=== PATIENT | male | born 1970 | race Caucasian/White ===

== ENCOUNTER → 2016-06-30 | Outpatient (CLI) | payer OTHER ==
[~2016-06-30] MED LIST: ALBU1AER INH; FLON0.053; GABA600T PO; LISI-360 PO; METF-324 PO; MOBI15TA PO; NAPR500 PO; OXYC10TA8 PO; OXYC20 PO
[2016-06-30 08:19] LABS: AUTOMATED NEUTROPHIL # 2.5 TH/MM3 (1.8-7.7); BASOPHIL % 0.6 % (0.0-2.0); EOSINOPHIL # 0.1 TH/MM3 (0-0.4); EOSINOPHIL % 2.7 % (0.0-4.0); HEMATOCRIT 40.5 % (39.0-51.0); HEMO FLAGS DIFF FINAL; LYMPH % 31.1 % (9.0-44.0); LYMPHOCYTE # 1.4 TH/MM3 (1.0-4.8); MEAN CELL VOLUME 90.9 FL (80.0-100.0); MEAN CORPUSCULAR HEMOGLOBIN 31.3 PG (27.0-34.0); MEAN CORPUSCULAR HGB CONC 34.4 % (32.0-36.0); MONO % 7.3 % (0.0-8.0); NEUT % 58.3 % (16.0-70.0); PLATELET COUNT 198 TH/MM3 (150-450); RED BLOOD COUNT 4.45 MIL/MM3 (4.50-5.90); RED CELL DISTRIBUTION WIDTH 12.8 % (11.6-17.2); WHITE BLOOD COUNT 4.4 TH/MM3 (4.0-11.0)
[2016-06-30 08:33] LABS: BLOOD, URINE NEG (NEG); GLUCOSE,URINE NEG (NEG); KETONE, URINE NEG (NEG); MUCUS URINE FEW /lpf (OCC); NITRITE,URINE NEG (NEG); PH, URINE 5.5 (5.0-8.5); SQUAMOUS EPITHELIAL CELL URINE <1 /hpf (0-5); URINE COLOR YELLOW (YELLW/STRAW)
[2016-06-30 08:51] LABS: MICRO ALBUMIN RANDOM URINE RAW 5.2 MG/L (0.0-30.0)
[2016-06-30 08:54] LABS: ANION GAP 9 MEQ/L (5-15); BICARBONATE 26.3 MEQ/L (21.0-32.0); BLOOD UREA NITROGEN 13 MG/DL (7-18); CHLORIDE 104 MEQ/L (98-107); GLOMERULAR FILTRATION RATE 76 ML/MIN (>89); GLUCOSE,FASTING 176 MG/DL (74-99); POTASSIUM 4.2 MEQ/L (3.5-5.1); SODIUM (NA) 139 MEQ/L (136-145)
[2016-06-30 09:04] LABS: ALKALINE PHOSPHATASE 59 U/L (45-117); ALT (GPT) 51 U/L (12-78); AST (GOT) 21 U/L (15-37); FREE T4 1.04 NG/DL (0.76-1.46); HDL CHOLESTEROL 53.2 MG/DL (40.0-60.0); LDL CHOLESTEROL 122 MG/DL (0-99); TOTAL BILIRUBIN ADULT 0.4 MG/DL (0.2-1.0)
[2016-06-30 16:42] LABS: HEMOGLOBIN A1a 1.2 %; HEMOGLOBIN A1b 2.5 %; HEMOGLOBIN Ao 80.6 %; HEMOGLOBIN LA1C 2.4 %
== END ==
LOC: CLAB 07:44
PROVIDERS: ATTEND Family Medicine
DX: E11.69 Type 2 diabetes mellitus with other specified complication (principal); G90.09 Other idiopathic peripheral autonomic neuropathy; M54.5 Low back pain; Z12.5 Encounter for screening for malignant neoplasm of prostate
CPT/HCPCS: 36415; 80053; 80061; 81001; 82043; 83036; 84153; 84439; 84443; 85025

== ENCOUNTER 2016-09-21 12:52 | Observation (INO) | payer OTHER ==
[~2016-09-21] VITALS: Ht 177.8 cm; Wt 87.0 kg
[2016-09-21 12:54] VITALS: BP 136/90; PULSE 86; RESP 18; TEMP 97.4; O2SAT 96
--- NOTE | 2016-09-21 13:06 | PD ---
Physical Exam Time Seen by Provider: 13:05 Narrative Pt presents to the ED for evaluation of CP with SOB since last night. Denies cardiac hx. Pain aggravated with inspiration. Denies cough or cold symptoms. VSS. Awaiting bed placement. Data Data Last Documented VS Vital Signs Date Time Temp Pulse Resp B/P Pulse Ox O2 Delivery O2 Flow Rate FiO2 09/21/16 12:54 97.4 86 18 136/90 96 Room Air MDM Supervised Visit with KIARA: Helga Aguilar Sep 21, 2016 13:06
[2016-09-21] MEDS ORDERED: SODIUM CHLORIDE 0.9% FLUSH 10 ML FLUSH IVF PRN (15:00)
[2016-09-21] MEDS ORDERED: ASPIRIN 325 MG TAB PO ONE (15:00)
--- NOTE | 2016-09-21 15:03 | PD ---
HPI Chief Complaint: Chest Pain Time Seen by Provider: 14:42 Travel History International Travel<30 days: No Contact w/Intl Traveler<30days: No Traveled to known affect area: No History of Present Illness HPI 46yo M with PMH of DM presents to the ED with c/o chest pain since yesterday. Describes it as burning, left sided, and intermittent for a few hours at a time. Pt also states when he walks, he feels pressure in his chest. Associated with worsening pain with inspiration and some sob. Pt was diaphoretic yesterday. Pt had chest pain evaluation when he was 30yo and had negative stress test. Pt's father had heart attack at 47yo. Denies any fever, cough, n/v, abdominal pain, focal weakness or numbness, GERD, PE, DVT, recent immobilization. Denies any cig or cocaine use. 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 PFSH Past Medical History Cardiovascular Problems: Yes Diabetes: Yes Patient Takes Glucophage: Yes Diminished Hearing: No Musculoskeletal: Yes Tetanus Vaccination: < 5 Years Influenza Vaccination: No Past Surgical History Ear Surgery: Yes Other Surgery: Yes (spinal fusion) Social History Alcohol Use: No Tobacco Use: No Substance Use: No (pt denies) Allergies-Medications (Allergen,Severity, Reaction): Coded Allergies: Penicillin (Verified Allergy, Severe, rash, 09/21/16) Vancomycin (Verified Allergy, Severe, rash, 09/21/16) Seafood (Verified Allergy, Unknown, swelling, 09/21/16) Reported Meds & Prescriptions Reported Meds & Active Scripts Active Reported Proair Hfa 8.5 GM Inh (Albuterol Sulfate) 90 Mcg/Act Aer 2 Puff INH Q4-6H PRN 108 mcg/actuation Slow-Mag (Magnesium Chloride-Calcium Carbonate) 71.5-119 Mg Tab 71.5 Mg PO DAILY Zocor (Simvastatin) 20 Mg Tab 20 Mg PO DAILY Naproxen 500 Mg Tab 500 Mg PO BID Glipizide XL (Glipizide) 5 Mg Louise 5 Mg PO DAILY Take with breakfast or first main meal of the day Metformin (Metformin HCl) 500 Mg Tab 500 Mg PO DAILY With a meal Metformin ER (Metformin HCl) 1,000 Mg Louise 1,000 Mg PO BIDAC With evening meal Oxycodone (Oxycodone HCl) 15 Mg Tab 15 Mg PO Q6H PRN Oxycodone ER (Oxycodone HCl) 20 Mg Tab 20 Mg PO Q12HR Gabapentin 600 Mg Tab 1,200 Mg PO TID Review of Systems Except as stated in HPI: all other systems reviewed are Neg Physical Exam Narrative GENERAL: 46yo M not in distress. SKIN: Focused skin assessment warm/dry. HEAD: Atraumatic. Normocephalic. EYES: Pupils equal and round. No scleral icterus. No injection or drainage. ENT: No nasal bleeding or discharge. Mucous membranes pink and moist. NECK: Trachea midline. No JVD. CARDIOVASCULAR: Regular rate and rhythm. No murmur appreciated. RESPIRATORY: No accessory muscle use. Clear to auscultation. Breath sounds equal bilaterally. CHEST WALL: +TTP midsternum. GASTROINTESTINAL: Abdomen soft, non-tender, nondistended. MUSCULOSKELETAL: No obvious deformities. No clubbing. No cyanosis. No edema. NEUROLOGICAL: Awake and alert. No obvious cranial nerve deficits. Motor grossly within normal limits. Normal speech. PSYCHIATRIC: Appropriate mood and affect; insight and judgment normal. Data Data Last Documented VS Vital Signs Date Time Temp Pulse Resp B/P Pulse Ox O2 Delivery O2 Flow Rate FiO2 09/21/16 15:30 98 Room Air 09/21/16 15:30 76 18 114/66 09/21/16 12:54 97.4 Orders Electrocardiogram (09/21/16 13:13) Basic Metabolic Panel (Bmp) (09/21/16 14:53) Ckmb (Isoenzyme) Profile (09/21/16 14:53) Complete Blood Count With Diff (09/21/16 14:53) D-Dimer (09/21/16 14:53) Magnesium (Mg) (09/21/16 14:53) Prothrombin Time / Inr (Pt) (09/21/16 14:53) Act Partial Throm Time (Ptt) (09/21/16 14:53) Troponin I (09/21/16 14:53) Chest, Single Ap (09/21/16 14:53) Ecg Monitoring (09/21/16 14:53) Bilateral Bp Monitoring (09/21/16 14:53) Iv Access Insert/Monitor (09/21/16 14:53) Oximetry (09/21/16 14:53) Oxygen Administration (09/21/16 14:53) Aspirin (Aspirin) (09/21/16 15:00) Sodium Chloride 0.9% Flush (Ns Flush) (09/21/16 15:00) Pantoprazole (Protonix) (09/21/16 15:15) CKMB (09/21/16 14:50) CKMB% (09/21/16 14:50) Admit Order (Ed Use Only) (09/21/16 16:39) Labs Laboratory Tests Test 09/21/16 14:50 White Blood Count 4.8 TH/MM3 Red Blood Count 4.46 MIL/MM3 Hemoglobin 13.5 GM/DL Hematocrit 41.6 % Mean Corpuscular Volume 93.2 FL Mean Corpuscular Hemoglobin 30.3 PG Mean Corpuscular Hemoglobin 32.5 % Concent Red Cell Distribution Width 12.9 % Platelet Count 198 TH/MM3 Mean Platelet Volume 9.2 FL Neutrophils (%) (Auto) 50.1 % Lymphocytes (%) (Auto) 35.4 % Monocytes (%) (Auto) 9.8 % Eosinophils (%) (Auto) 4.2 % Basophils (%) (Auto) 0.5 % Neutrophils # (Auto) 2.4 TH/MM3 Lymphocytes # (Auto) 1.7 TH/MM3 Monocytes # (Auto) 0.5 TH/MM3 Eosinophils # (Auto) 0.2 TH/MM3 Basophils # (Auto) 0.0 TH/MM3 CBC Comment DIFF FINAL Differential Comment Prothrombin Time 10.7 SEC Prothromb Time International 1.0 RATIO Ratio Activated Partial 25.8 SEC Thromboplast Time D-Dimer Quantitative (PE/DVT) 0.43 MG/L FEU Sodium Level 138 MEQ/L Potassium Level 4.0 MEQ/L Chloride Level 103 MEQ/L Carbon Dioxide Level 29.9 MEQ/L Anion Gap 5 MEQ/L Blood Urea Nitrogen 12 MG/DL Creatinine 1.01 MG/DL Estimat Glomerular Filtration 80 ML/MIN Rate Random Glucose 106 MG/DL Calcium Level 9.3 MG/DL Magnesium Level 1.9 MG/DL Total Creatine Kinase 381 U/L Creatine Kinase MB 2.4 NG/ML Creatine Kinase MB % 0.6 % Troponin I LESS THAN 0.02 NG/ML MDM Medical Decision Making Medical Screen Exam Complete: Yes Emergency Medical Condition: Yes Interpretation(s) EKG: NSR 72bpm. Normal axis. No ST segment elevation or depression. Differential Diagnosis Musculoskeletal pain vs. ACS vs. pericarditis vs. pneumonia vs. PE Narrative Course 46yo M with atypical chest pain. However, he does have risk factor with DM and has not had any cardiac work up recently. Labs reviewed, no leukocytosis. Troponin negative. D-dimer negative. CXR negative. Will admit to chest pain center. Diagnosis Primary Impression: OTHER CHEST PAIN Admitting Information Admitting Physician Requests: Observation Scripts Pantoprazole (Protonix)40 Mg Tab40 Mg PO DAILY #30 TAB Ref 1 Prov:Rachel Christina 09/22/16 Dora Rojas DO Sep 21, 2016 15:03
[2016-09-21] MEDS ORDERED: PANTOPRAZOLE SOD 40 MG DELAYED RELEASE TAB PO ONE (15:15)
[2016-09-21 15:30] VITALS: BP 114/66; PULSE 76; RESP 18; O2SAT 98
--- NOTE | 2016-09-21 15:39 | RADRPT ---
EXAM DATE/TIME: 09/21/2016 15:11 [facility] COMPARISON: No previous studies available for comparison. INDICATIONS : Chest pain since yesterday. MEDICAL HISTORY : None. SURGICAL HISTORY : None. ENCOUNTER: Initial ACUITY: 2 days PAIN SCORE: 4/10 LOCATION: Bilateral chest FINDINGS: A single view of the chest demonstrates the lungs to be symmetrically aerated without evidence of mas s, infiltrate or effusion. The cardiomediastinal contours are unremarkable. Osseous structures are intact. CONCLUSION: 1. No acute cardiomegaly disease. Dima Pisano MD on September 21, 2016 at 15:36 Board Certified Radiologist. This report was verified electronically.
[2016-09-21 15:44] LABS: AUTOMATED NEUTROPHIL # 2.4 TH/MM3 (1.8-7.7); BASOPHIL % 0.5 % (0.0-2.0); EOSINOPHIL # 0.2 TH/MM3 (0-0.4); EOSINOPHIL % 4.2 % (0.0-4.0); HEMATOCRIT 41.6 % (39.0-51.0); HEMO FLAGS DIFF FINAL; LYMPH % 35.4 % (9.0-44.0); LYMPHOCYTE # 1.7 TH/MM3 (1.0-4.8); MEAN CELL VOLUME 93.2 FL (80.0-100.0); MEAN CORPUSCULAR HEMOGLOBIN 30.3 PG (27.0-34.0); MEAN CORPUSCULAR HGB CONC 32.5 % (32.0-36.0); MONO % 9.8 % (0.0-8.0); NEUT % 50.1 % (16.0-70.0); PLATELET COUNT 198 TH/MM3 (150-450); RED BLOOD COUNT 4.46 MIL/MM3 (4.50-5.90); RED CELL DISTRIBUTION WIDTH 12.9 % (11.6-17.2); WHITE BLOOD COUNT 4.8 TH/MM3 (4.0-11.0)
[2016-09-21 15:51] LABS: APTT (PATIENT) 25.8 SEC (24.3-30.1); PROTHROMBIN TIME - PATIENT 10.7 SEC (9.8-11.6)
[2016-09-21 16:03] LABS: ANION GAP 5 MEQ/L (5-15); BICARBONATE 29.9 MEQ/L (21.0-32.0); BLOOD UREA NITROGEN 12 MG/DL (7-18); CHLORIDE 103 MEQ/L (98-107); GLOMERULAR FILTRATION RATE 80 ML/MIN (>89); MAGNESIUM 1.9 MG/DL (1.5-2.5); SODIUM (NA) 138 MEQ/L (136-145)
[2016-09-21 16:18] LABS: CREATINE KINASE 381 U/L (39-308)
[2016-09-21 16:31] LABS: CKMB 2.4 NG/ML (0.5-3.6)
[2016-09-21] MEDS ORDERED: NAPR500T PO (18:30)
[2016-09-21] MEDS ORDERED: GLIP-157 PO (18:30)
[2016-09-21] MEDS ORDERED: ZOCO20TA PO (18:30)
[2016-09-21] MEDS ORDERED: SLOWTAB PO (18:30)
[2016-09-21] MEDS ORDERED: GABA600T PO (18:30)
[2016-09-21] MEDS ORDERED: ALBUAER3 INH (18:30)
[2016-09-21] MEDS ORDERED: METF-382 PO (18:30)
[2016-09-21] MEDS ORDERED: OXYC15TA PO (18:30)
[2016-09-21] MEDS ORDERED: METF500T PO (18:30)
[2016-09-21] MEDS ORDERED: OXYC-405 PO (18:30)
[2016-09-21 19:35] LABS: CREATINE KINASE 329 U/L (39-308)
[2016-09-21 19:48] LABS: CKMB 2.3 NG/ML (0.5-3.6)
[2016-09-21 19:53] VITALS: BP 116/73; PULSE 82; RESP 20; TEMP 98.1; O2SAT 94
[2016-09-21] MEDS: SODIUM CHLORIDE 0.9% FLUSH 10 ML FLUSH IV FLUSH SCH (21:20)
[2016-09-21 22:19] LABS: CREATINE KINASE 289 U/L (39-308)
[2016-09-21 22:32] LABS: CKMB 1.6 NG/ML (0.5-3.6)
[2016-09-21 23:51] VITALS: PULSE 75
[2016-09-22 00:03] VITALS: BP 112/72; PULSE 72; RESP 20; TEMP 98.4; O2SAT 96
[2016-09-22 04:13] VITALS: BP 100/59; PULSE 68; RESP 18; TEMP 97.8; O2SAT 96
[2016-09-22] MEDS ORDERED: NAPROXEN 500 MG TAB PO SCH (06:00)
[2016-09-22] MEDS: GABAPENTIN 300 MG CAP PO SCH ×2 (06:08→13:02)
[2016-09-22 06:41] VITALS: O2SAT 96
[2016-09-22 07:11] VITALS: BP 112/75; PULSE 79; RESP 14; TEMP 97.5; O2SAT 95
[2016-09-22 07:15] VITALS: PULSE 77
[2016-09-22] MEDS ORDERED: ONDANSETRON HCL 4 MG/2 ML VIAL IV PRN (08:00)
[2016-09-22] MEDS ORDERED: ACETAMINOPHEN 500 MG CPLT PO PRN (08:00)
[2016-09-22] MEDS ORDERED: NITROGLYCERIN 0.4 MG SL 25 TABS/BTL SL PRN (08:00)
[2016-09-22] MEDS ORDERED: ASPIRIN 325 MG TAB PO SCH (09:00)
[2016-09-22] MEDS: SODIUM CHLORIDE 0.9% FLUSH 10 ML FLUSH IV FLUSH SCH (09:19)
--- NOTE | 2016-09-22 11:18 | HHI.HP ---
HPI Primary Care Physician Jonny Wagner MD Chief Complaint Chest pain History of Present Illness 46-year-old patient with history of diabetes and chronic back pain presents to emergency room for further evaluation of chest pain. Onset Monday for p.m. Location substernal. Characterized as indigestion and burning. Associated symptoms included shortness of breath, diaphoresis, and belching. Denied a nausea or vomiting. Deep breathing initially make pain worse therefore states he was breathing shallow. No radiation of pain. Duration has been constant waxing and waning in intensity since Monday afternoon. No particular movement or position make pain better or worse. Works as a traveling salesman. Yesterday while driving to [place] he continued to have discomfort therefore decided to come to the ER for further evaluation. No known precipitating factors. He tried many antacids without relief. GI cocktail provided emergency room provided slight relief. Endorses he is active and likely job and does not develop any chest discomfort during activity. Review of Systems General: No fatigue,weakness, fever, chills, recent illness, or change in appetite. Has been in his general state of health. Endorses chronic back pain. HEENT: No TERRY, no vision changes, no nasal congestion or drainage, no dysphasia CV: As stated above. Continues to have mild substernal chest burning. No intermittent leg pain with ambulation. RESP: No SOB, cough, wheeze, or recent URI. History of allergy-induced asthma GI: No nausea, vomiting, bowel changes, diarrhea, constipation, pain, distention , melena, or blood in the stool. No unintentional weight gain or weight loss : No dysuria, urgency, frequency,or history of kidney stones EXT: No lower leg edema. History of neuropathy right knee to foot with occasional left leg neuropathy. Tender back of right thigh with palpation. MS: Chronic back pain, endorses multiple back surgeries and injuries. NEURO: No difficulty with balance, LOC, motor/sensory deficits PSYCH: No anxiety, depression, or situational stress SKIN: No rashes, no concerning lesions Past Family Social History Allergies: Coded Allergies: Penicillin (Verified Allergy, Severe, rash, 09/21/16) Vancomycin (Verified Allergy, Severe, rash, 09/21/16) Seafood (Verified Allergy, Unknown, swelling, 09/21/16) Past Medical History Diabetes type 2, chronic back pain, asthma allergy induced Past Surgical History Laminectomy, spinal fusion Reported Medications Active Reported Proair Hfa 8.5 GM Inh (Albuterol Sulfate) 90 Mcg/Act Aer 2 Puff INH Q4-6H PRN 108 mcg/actuation Slow-Mag (Magnesium Chloride-Calcium Carbonate) 71.5-119 Mg Tab 71.5 Mg PO DAILY Zocor (Simvastatin) 20 Mg Tab 20 Mg PO DAILY Naproxen 500 Mg Tab 500 Mg PO BID Glipizide XL (Glipizide) 5 Mg Louise 5 Mg PO DAILY Take with breakfast or first main meal of the day Metformin (Metformin HCl) 500 Mg Tab 500 Mg PO DAILY With a meal Metformin ER (Metformin HCl) 1,000 Mg Louise 1,000 Mg PO BIDAC With evening meal Oxycodone (Oxycodone HCl) 15 Mg Tab 15 Mg PO Q6H PRN Oxycodone ER (Oxycodone HCl) 20 Mg Tab 20 Mg PO Q12HR Gabapentin 600 Mg Tab 1,200 Mg PO TID Active Ordered Medications Current Medications Medications (Trade) Dose Ordered Sig/Olga Route Start Time Stop Time Status Last Admin (NS Flush) 2 ml UNSCH PRN IVF 09/21/16 15:00 (NS Flush) 2 ml BID IV FLUSH 09/21/16 21:00 09/22/16 09:19 (Roxicodone) 15 mg Q6H PRN PO 09/22/16 04:45 09/22/16 06:07 (Neurontin) 600 mg DAILY@09,14,21 PO 09/22/16 09:00 09/22/16 06:08 (Tylenol) 500 mg Q4H PRN PO 09/22/16 08:00 (Zofran Inj) 4 mg Q6H PRN IV 09/22/16 08:00 (Nitrostat Sl) 0.4 mg Q5M PRN SL 09/22/16 08:00 (Aspirin) 325 mg DAILY PO 09/22/16 09:00 09/22/16 09:19 Family History Father had heart attack at age 47. Social History Known diabetes. No known hypertension or hyperlipidemia. States primary doctor has given him preventative medication. Lifelong nonsmoker. Denies any alcohol or illegal drug use. Endorses an active lifestyle with daily activity including jogging most days. Past cardiac testing Exercise stress test in his late 20s unremarkable. Test was completed after father's heart attack. Physical Exam Vital Signs Vital Signs Date Time Temp Pulse Resp B/P Pulse Ox O2 Delivery O2 Flow Rate FiO2 09/22/16 07:11 97.5 79 14 112/75 95 09/22/16 06:41 96 21 09/22/16 04:13 97.8 68 18 100/59 96 09/22/16 00:03 98.4 72 20 112/72 96 09/21/16 23:51 75 09/21/16 19:53 98.1 82 20 116/73 94 09/21/16 15:30 98 Room Air 09/21/16 15:30 76 18 114/66 98 Room Air 09/21/16 15:30 76 18 114/66 98 Room Air 09/21/16 15:15 89 20 98 Room Air 09/21/16 12:54 97.4 86 18 136/90 96 Room Air Physical Exam GENERAL: Alert WN, WD, NAD, mildly anxious, male HEAD: NC, AT EYES: Sclera clear, conjunctiva without injection, pupils equal and round ENT: Mucous membranes pink and moist, no nasal discharge or bleeding NECK: Supple, no masses, trachea midline CV: RRR, without murmur, rub, gallop, no JVD, S1-S2 no S3-S4. No carotid or femoral bruits RESP: Clear lungs throughout bilateral, no crackles, wheeze, rhonchi, symmetrical chest rise, nonlabored, able to speak in full sentences ABD: Soft, NT, ND, no masses, positive bowel tones BACK: No CVAT, no scoliosis EXT: Pulses +24, no dependent edema MS: Normal tone 4 extremities, nontender, no obvious deformities, full range of motion NEURO: CN II through CN XII grossly intact, motor strength 5/5, gait WNL PSYCH: A+O 3, pleasant affect, appropriate speech, appropriate mood and affect , insight and judgment SKIN: Normal turgor, normal texture, no lesions, no rashes, brisk cap refill, even hair distribution Laboratory Laboratory Tests Test 09/21/16 09/21/16 09/21/16 14:50 17:50 21:27 White Blood Count 4.8 Red Blood Count 4.46 Hemoglobin 13.5 Hematocrit 41.6 Mean Corpuscular Volume 93.2 Mean Corpuscular Hemoglobin 30.3 Mean Corpuscular Hemoglobin 32.5 Concent Red Cell Distribution Width 12.9 Platelet Count 198 Mean Platelet Volume 9.2 Neutrophils (%) (Auto) 50.1 Lymphocytes (%) (Auto) 35.4 Monocytes (%) (Auto) 9.8 Eosinophils (%) (Auto) 4.2 Basophils (%) (Auto) 0.5 Neutrophils # (Auto) 2.4 Lymphocytes # (Auto) 1.7 Monocytes # (Auto) 0.5 Eosinophils # (Auto) 0.2 Basophils # (Auto) 0.0 CBC Comment DIFF FINAL Differential Comment Prothrombin Time 10.7 Prothromb Time International 1.0 Ratio Activated Partial 25.8 Thromboplast Time D-Dimer Quantitative (PE/DVT) 0.43 Sodium Level 138 Potassium Level 4.0 Chloride Level 103 Carbon Dioxide Level 29.9 Anion Gap 5 Blood Urea Nitrogen 12 Creatinine 1.01 Estimat Glomerular Filtration 80 Rate Random Glucose 106 Calcium Level 9.3 Magnesium Level 1.9 Total Creatine Kinase 381 329 289 Creatine Kinase MB 2.4 2.3 1.6 Creatine Kinase MB % 0.6 0.7 Troponin I LESS THAN 0.02 LESS THAN 0.02 LESS THAN 0.02 Result Diagram: 09/21/16 1450 09/21/16 1450 Imaging Last Impressions Chest X-Ray 09/21/16 1453 Signed Impressions: Service Date/Time: Wednesday, September 21, 2016 15:11 - CONCLUSION: 1. No acute cardiomegaly disease. Dima Pisano MD Course EKGs Normal sinus rhythm, normal axis no ST or T-segment changes Assessment and Plan Assessment and Plan Chest painadmitted to chest pain center. Ruled out with 3 sets of EKGs, cardiac enzymes, and monitor overnight. Will be seen and evaluated by Dr. Brenna Preston. Plan to complete exercise stress test this a.m. Patient agreeable to plan a care. DiabetesSSI low-dose scale, discussed in length importance of taking preventative medication with history of diabetes. Chronic back paincontinue oxycodone GERDProtonix 40 daily, prescription will be provided at discharge. Rachel Christina Sep 22, 2016 11:18
[2016-09-22] MEDS ORDERED: PANTOPRAZOLE SOD 40 MG DELAYED RELEASE TAB PO SCH (11:30)
--- NOTE | 2016-09-22 11:53 | HHI.HP ---
HPI Primary Care Physician Jonny Wagner MD Past Family Social History Allergies: Coded Allergies: Penicillin (Verified Allergy, Severe, rash, 09/21/16) Vancomycin (Verified Allergy, Severe, rash, 09/21/16) Seafood (Verified Allergy, Unknown, swelling, 09/21/16) Reported Medications Reported Meds & Active Scripts Active Reported Proair Hfa 8.5 GM Inh (Albuterol Sulfate) 90 Mcg/Act Aer 2 Puff INH Q4-6H PRN 108 mcg/actuation Slow-Mag (Magnesium Chloride-Calcium Carbonate) 71.5-119 Mg Tab 71.5 Mg PO DAILY Zocor (Simvastatin) 20 Mg Tab 20 Mg PO DAILY Naproxen 500 Mg Tab 500 Mg PO BID Glipizide XL (Glipizide) 5 Mg Louise 5 Mg PO DAILY Take with breakfast or first main meal of the day Metformin (Metformin HCl) 500 Mg Tab 500 Mg PO DAILY With a meal Metformin ER (Metformin HCl) 1,000 Mg Louise 1,000 Mg PO BIDAC With evening meal Oxycodone (Oxycodone HCl) 15 Mg Tab 15 Mg PO Q6H PRN Oxycodone ER (Oxycodone HCl) 20 Mg Tab 20 Mg PO Q12HR Gabapentin 600 Mg Tab 1,200 Mg PO TID Active Ordered Medications Current Medications Medications (Trade) Dose Ordered Sig/Olga Route Start Time Stop Time Status Last Admin (NS Flush) 2 ml UNSCH PRN IVF 09/21/16 15:00 (NS Flush) 2 ml BID IV FLUSH 09/21/16 21:00 09/22/16 09:19 (Roxicodone) 15 mg Q6H PRN PO 09/22/16 04:45 09/22/16 06:07 (Neurontin) 600 mg DAILY@09,14,21 PO 09/22/16 09:00 09/22/16 06:08 (Tylenol) 500 mg Q4H PRN PO 09/22/16 08:00 (Zofran Inj) 4 mg Q6H PRN IV 09/22/16 08:00 (Nitrostat Sl) 0.4 mg Q5M PRN SL 09/22/16 08:00 (Aspirin) 325 mg DAILY PO 09/22/16 09:00 09/22/16 09:19 (Protonix) 40 mg DAILY PO 09/22/16 11:30 Physical Exam Vital Signs Vital Signs Date Time Temp Pulse Resp B/P Pulse Ox O2 Delivery O2 Flow Rate FiO2 09/22/16 07:11 97.5 79 14 112/75 95 09/22/16 06:41 96 21 09/22/16 04:13 97.8 68 18 100/59 96 09/22/16 00:03 98.4 72 20 112/72 96 09/21/16 23:51 75 09/21/16 19:53 98.1 82 20 116/73 94 09/21/16 15:30 98 Room Air 09/21/16 15:30 76 18 114/66 98 Room Air 09/21/16 15:30 76 18 114/66 98 Room Air 09/21/16 15:15 89 20 98 Room Air 09/21/16 12:54 97.4 86 18 136/90 96 Room Air Laboratory Laboratory Tests Test 09/21/16 09/21/16 09/21/16 14:50 17:50 21:27 White Blood Count 4.8 Red Blood Count 4.46 Hemoglobin 13.5 Hematocrit 41.6 Mean Corpuscular Volume 93.2 Mean Corpuscular Hemoglobin 30.3 Mean Corpuscular Hemoglobin 32.5 Concent Red Cell Distribution Width 12.9 Platelet Count 198 Mean Platelet Volume 9.2 Neutrophils (%) (Auto) 50.1 Lymphocytes (%) (Auto) 35.4 Monocytes (%) (Auto) 9.8 Eosinophils (%) (Auto) 4.2 Basophils (%) (Auto) 0.5 Neutrophils # (Auto) 2.4 Lymphocytes # (Auto) 1.7 Monocytes # (Auto) 0.5 Eosinophils # (Auto) 0.2 Basophils # (Auto) 0.0 CBC Comment DIFF FINAL Differential Comment Prothrombin Time 10.7 Prothromb Time International 1.0 Ratio Activated Partial 25.8 Thromboplast Time D-Dimer Quantitative (PE/DVT) 0.43 Sodium Level 138 Potassium Level 4.0 Chloride Level 103 Carbon Dioxide Level 29.9 Anion Gap 5 Blood Urea Nitrogen 12 Creatinine 1.01 Estimat Glomerular Filtration 80 Rate Random Glucose 106 Calcium Level 9.3 Magnesium Level 1.9 Total Creatine Kinase 381 329 289 Creatine Kinase MB 2.4 2.3 1.6 Creatine Kinase MB % 0.6 0.7 Troponin I LESS THAN 0.02 LESS THAN 0.02 LESS THAN 0.02 Result Diagram: 09/21/16 1450 09/21/16 1450 Assessment and Plan Assessment and Plan Patient seen history obtained and examined. Reviewed with CONTRACTS ADVISOR Pert history includes 2 days atypical burning pain from base of throat to zyphoid. This began suddenly while eating and was associated with mild SOB diaphoresis and a slight cough with pleuritic component. This pain was 4/10 and continues to present. The SOB is accentuated with activity. Preceding this event he experienced a severe cramp in his right thigh with some tenderness persisting to present. PE: Only pert well heeled back scar (stimulator) tender along entire back of thigh on right neg Homans A: Atypical CP RO ACS RO PE possible GI P: Per protocol with ETT if neg Check D dimer Jose A Preston MD Sep 22, 2016 11:53
[2016-09-22 12:00] VITALS: PULSE 75
[2016-09-22] MEDS ORDERED: GABAPENTIN 400 MG CAP PO SCH (13:00)
--- NOTE | 2016-09-22 14:16 | HHI.DCPOC ---
Discharge Care Plan Diagnosis: (1) Atypical chest pain (2) Type 2 diabetes mellitus (3) GERD (gastroesophageal reflux disease) Goals to Promote Your Health * To prevent worsening of your condition and complications * To maintain your health at the optimal level Directions to Meet Your Goals Take your medications as prescribed Follow your dietary instruction Follow activity as directed Keep your appointments as scheduled Take your immunizations and boosters as scheduled If your symptoms worsen call your PCP, if no PCP go to Urgent Care Center or Emergency Room Smoking is Dangerous to Your Health. Avoid second hand smoke Call the 24-hour hour crisis hotline for domestic abuse at Rachel Christina [facility] Sep 22, 2016 14:16
[2016-09-22] MEDS ORDERED: PROT40TA PO (14:22)
[2016-09-22] MEDS ORDERED: PRAVASTATIN SOD 40 MG TAB PO SCH (21:00)
--- NOTE | 2016-09-23 13:11 | EKG ---
Date Performed: 09/21/2016 Time Performed: 20:49:48 PTAGE: 46 years EKG: Sinus rhythm NORMAL ECG PREVIOUS TRACING : 09/21/2016 18.06 Since previous tracing, no significant change noted DOCTOR: Arturo Mcdonald Interpretating Date/Time 09/23/2016 13:10:09
--- NOTE | 2016-09-23 13:12 | EKG ---
Date Performed: 09/21/2016 Time Performed: 18:06:27 PTAGE: 46 years EKG: Sinus rhythm NORMAL ECG PREVIOUS TRACING : 09/21/2016 13.13 Since previous tracing, no significant change noted DOCTOR: Arturo Mcdonald Interpretating Date/Time 09/23/2016 13:10:40
--- NOTE | 2016-09-23 13:13 | EKG ---
Date Performed: 09/21/2016 Time Performed: 13:13:33 PTAGE: 46 years EKG: normal Sinus rhythm POSSIBLE RIGHT VENTRICULAR CONDUCTION DELAY ABNORMAL RHYTHM ECG NO PREVIOUS TRACING DOCTOR: Arturo Mcdonald Interpretating Date/Time 09/23/2016 13:11:48
--- NOTE | 2016-09-23 13:20 | TR ---
Date Performed: 09/22/2016 Time Performed: 11:56:29 DOCTOR: Arturo Mcdonald DRUG LIST: CLINICAL HISTORY: REASON FOR TEST: REASON FOR ENDING: OBSERVATION: CONCLUSION: Bj protocol completed. Stopped sec to exceeding target heart rate and leg fatigue . Maximum LE=335 Target HR Achieved=88.0% Maximum JG=328/72 Total Exercise Time=8:02. No reprod chest discomfort. Rare PVC. No st t segment changes to sugg ischemia. Electrical alternans noted. Good exe rcise tolerance. Normal bp response. Recovery quick and unremarkable. COMMENTS: Patient exercised using the Bj protocol. No electrocardiographic changes were seen to suggest ischemia. Hemodynamic response to exercise was normal. No significant arrhythmia was prese nt.
== END 2016-09-22 15:02 | disposition home or self-care (01) ==
LOC: NEPC 12:52 → NEDA 16:41 → NEPGCP 18:42
PROVIDERS: ADMIT Internal Medicine Cardiovascular Disease; ATTEND Internal Medicine Cardiovascular Disease
DX: R07.89 Other chest pain (principal); K21.9 Gastro-esophageal reflux disease without esophagitis; R06.02 Shortness of breath; M54.9 Dorsalgia, unspecified; R61 Generalized hyperhidrosis; J45.909 Unspecified asthma, uncomplicated; Z79.899 Other long term (current) drug therapy; Z79.84 Long term (current) use of oral hypoglycemic drugs; Z82.49 Family history of ischemic heart disease and other diseases of the circulatory system
CPT/HCPCS: 71010; 80048; 82550; 82552; 83735; 84484; 85025; 85379; 85610; 85730; 93005; 93017; 99285; G0378

== ENCOUNTER 2016-11-25 16:17 | Emergency (ER) | payer OTHER ==
[~2016-11-25] VITALS: Ht 175.3 cm; Wt 89.0 kg
[~2016-11-25 16:17] MED LIST changes: -ALBU1AER INH; +ALBUAER3 INH; -FLON0.053; +GLIP-157 PO; -LISI-360 PO; -METF-324 PO; +METF-382 PO; +METF500T PO; -MOBI15TA PO; -NAPR500 PO; +NAPR500T PO; +OXYC-405 PO; -OXYC10TA8 PO; +OXYC15TA PO; -OXYC20 PO; +PROT40TA PO; +SLOWTAB PO; +ZOCO20TA PO
[2016-11-25 16:19] VITALS: BP 137/69; PULSE 90; RESP 15; TEMP 98.5; O2SAT 94
[2016-11-25] MEDS ORDERED: OXYC30TA62 PO (16:42)
[2016-11-25] MEDS ORDERED: LIDOCAINE HCL 1% 50 ML VIAL INFIL ONE (16:45)
[2016-11-25] MEDS ORDERED: TETANUS/DIPHTHERIA TOXOID ADULT 0.5 ML VIAL IM ONE (16:45)
--- NOTE | 2016-11-25 16:50 | PD ---
HPI Chief Complaint: Laceration/Skin Injury Time Seen by Provider: 16:26 Travel History International Travel<30 days: No Contact w/Intl Traveler<30days: No Traveled to known affect area: No History of Present Illness HPI 46-year-old male that presents to the ED for evaluation of laceration to the left great toe. Per patient this happened today. Per patient he was moving some metal shutters went on and cut him on the toe. He states that he had a lot of bleeding which is what made him come. His significant other apply Steri- Strips to the area. He denies any other medical issues. No chest pain or shortness of breath. Able to move the toe fully. Pain is minimal. No allergies to medication. No other medical issues. 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) Cardiac Catheterization: No Cardiovascular Problems: No High Cholesterol: Yes Congestive Heart Failure: No Diabetes: Yes Patient Takes Glucophage: No Diminished Hearing: No Musculoskeletal: Yes Tetanus Vaccination: > 5 Years Influenza Vaccination: No ?: Not Past Surgical History Coronary Artery Bypass Graft: No Ear Surgery: Yes Other Surgery: Yes (spinal fusion, SPINAL [employer]ULATOR , FOUR BACK SURGERIES) Family History Family Myocardial Infarction: Yes (FATHER) Social History Alcohol Use: No Tobacco Use: No Substance Use: No (pt denies) Allergies-Medications (Allergen,Severity, Reaction): Coded Allergies: penicillin G (Unverified Allergy, Severe, rash, 11/25/16) vancomycin (Unverified Allergy, Severe, rash, 11/25/16) Fish Containing Products (Unverified Allergy, Unknown, swelling, 11/25/16) Reported Meds & Prescriptions Reported Meds & Active Scripts Active Reported Oxycontin (Oxycodone HCl) 30 Mg Tab 15 Mg PO QID Proair Hfa 8.5 GM Inh (Albuterol Sulfate) 90 Mcg/Act Aer 2 Puff INH Q4-6H PRN 108 mcg/actuation Zocor (Simvastatin) 20 Mg Tab 20 Mg PO DAILY Glipizide XL (Glipizide) 5 Mg Louise 5 Mg PO DAILY Take with breakfast or first main meal of the day Metformin (Metformin HCl) 500 Mg Tab 500 Mg PO DAILY With a meal Metformin ER (Metformin HCl) 1,000 Mg Louise 1,000 Mg PO BIDAC With evening meal Oxycodone ER (Oxycodone HCl) 20 Mg Tab 20 Mg PO Q12HR Gabapentin 600 Mg Tab 1,200 Mg PO TID Review of Systems Except as stated in HPI: all other systems reviewed are Neg Physical Exam Narrative GENERAL: SKIN: Warm and dry. HEAD: Atraumatic. Normocephalic. EYES: Pupils equal and round. No scleral icterus. No injection or drainage. ENT: No nasal bleeding or discharge. Mucous membranes pink and moist. Tongue is midline. No uvula deviation. NECK: Trachea midline. No JVD. CARDIOVASCULAR: Regular rate and rhythm. No murmurs, S3, S4. RESPIRATORY: No accessory muscle use. Clear to auscultation. Breath sounds equal bilaterally. GASTROINTESTINAL: Abdomen soft, non-tender, nondistended. Hepatic and splenic margins not palpable. MUSCULOSKELETAL: Extremities without clubbing, cyanosis, or edema. No obvious deformities. Full range of motion of all extremities. Patient has a very superficial and very well approximated less than 1 cm laceration to the dorsal aspect of the left great toe on the PIP area. Minimal bleeding noted. Good capillary refill. Full range of motion of the toe. NEUROLOGICAL: Awake and alert. No obvious cranial nerve deficits. Motor grossly within normal limits. Five out of 5 muscle strength in the arms and legs. Normal speech. PSYCHIATRIC: Appropriate mood and affect; insight and judgment normal. Data Data Last Documented VS Vital Signs Date Time Temp Pulse Resp B/P (MAP) Pulse Ox O2 Delivery O2 Flow Rate FiO2 11/25/16 16:19 98.5 90 15 137/69 (91) 94 Orders Orders Wound Care (11/25/16 16:31) Lidocaine 1% Inj (50 Ml) (Xylocaine 1% I (11/25/16 16:45) Tetanus/Diphtheria Tox Adult (Tetanus/Di (11/25/16 16:45) MDM Medical Decision Making Medical Screen Exam Complete: Yes Emergency Medical Condition: Yes Medical Record Reviewed: Yes Differential Diagnosis Laceration versus abrasion versus skin tear Narrative Course 46-year-old male that presents to the ED for evaluation of laceration to the left great toe. Patient was properly examined and was found to have signs and symptoms consistent laceration. After explained procedure to the patient and she agreed to it laceration was repaired see procedure note. Told to get sutures removed in 14 days. Wound care was endorsed. Follow up with PCP. See ED for worsening symptoms. Patient was given tetanus booster here. Procedures Procedure Narrative LACERATION LOCATION: left great toe LENGTH: 1 cm NUMBER OF STITCHES/SUYAPA: 2 sutures REPAIR: The area of the laceration was prepped with Betadine and sterilely draped. The laceration was infiltrated with 1% Xylocaine. The wound was copiously irrigated and explored without evidence of foreign body, tendon injury or neurovascular injury. The wound was closed using 4-0 Prolene. This was a 1 layer repair. A sterile dressing was applied. The patient was advised to keep the dressing clean and dry. Patient tolerated the procedure well. Diagnosis Primary Impression: Toe laceration Qualified Codes: S91.112A - Laceration without foreign body of left great toe without damage to nail, initial encounter Patient Instructions: General Instructions Additional Instructions: Wound care daily with soap and water. You can apply bandaid if needed. Neosporyn or OTC antibiotic ointment to area as needed twice a day for at least 2 weeks to help with scarring and prevent infection. Meoderma OTC for scarring if needed. Avoid sun exposure for 2 months as the sun could make scar darker and more noticeable. Get sutures removed in 14 days. See ED if worst. Med/Other Pt SpecificInfo: Wound Care Disposition: 01 DISCHARGE HOME Condition: Stable Ellis Duvall Nov 25, 2016 16:50
== END 2016-11-25 17:51 | disposition home or self-care (01) ==
LOC: PHEFT 16:17
DX: S91.112A Laceration without foreign body of left great toe without damage to nail, initial encounter (principal); W26.8XXA Contact with other sharp object(s), not elsewhere classified, initial encounter; Y93.H9 Activity, other involving exterior property and land maintenance, building and construction; Y92.009 Unspecified place in unspecified non-institutional (private) residence as the place of occurrence of the external cause; Z23 Encounter for immunization
CPT/HCPCS: 12001; 90471; 90714

== ENCOUNTER → 2017-06-20 | Outpatient (CLI) | payer OTHER ==
[~2017-06-20] MED LIST changes: -NAPR500T PO; -OXYC15TA PO; +OXYC30TA62 PO; -PROT40TA PO; -SLOWTAB PO
[2017-06-20 07:01] LABS: AUTOMATED NEUTROPHIL # 1.7 TH/MM3 (1.8-7.7); BASOPHIL % 0.9 % (0.0-2.0); EOSINOPHIL # 0.2 TH/MM3 (0-0.4); EOSINOPHIL % 4.8 % (0.0-4.0); HEMATOCRIT 42.6 % (39.0-51.0); HEMOGLOBIN 14.4 GM/DL (13.0-17.0); LYMPH % 45.2 % (9.0-44.0); LYMPHOCYTE # 1.9 TH/MM3 (1.0-4.8); MEAN CELL VOLUME 92.9 FL (80.0-100.0); MEAN CORPUSCULAR HEMOGLOBIN 31.5 PG (27.0-34.0); MEAN CORPUSCULAR HGB CONC 33.9 % (32.0-36.0); MEAN PLATELET VOLUME 8.2 FL (7.0-11.0); MONO % 8.4 % (0.0-8.0); MONOCYTE # 0.4 TH/MM3 (0-0.9); NEUT % 40.7 % (16.0-70.0); PLATELET COUNT 207 TH/MM3 (150-450); RED BLOOD COUNT 4.58 MIL/MM3 (4.50-5.90); RED CELL DISTRIBUTION WIDTH 12.9 % (11.6-17.2); WHITE BLOOD COUNT 4.3 TH/MM3 (4.0-11.0)
[2017-06-20 07:29] LABS: ALBUMIN 4.2 GM/DL (3.4-5.0); ALT (GPT) 29 U/L (12-78); AST (GOT) 20 U/L (15-37); BICARBONATE 28.8 MEQ/L (21.0-32.0); CALCIUM 8.8 MG/DL (8.5-10.1); CHLORIDE 107 MEQ/L (98-107); CHOLESTEROL 197 MG/DL (120-200); CREATININE 1.12 MG/DL (0.60-1.30); GLOMERULAR FILTRATION RATE 71 ML/MIN (>89); GLUCOSE,FASTING 157 MG/DL (74-99); MAGNESIUM 2.2 MG/DL (1.5-2.5); SODIUM (NA) 140 MEQ/L (136-145); TRIGLYCERIDES 148 MG/DL (42-150)
[2017-06-20 07:34] LABS: ALKALINE PHOSPHATASE 72 U/L (45-117); BLOOD UREA NITROGEN 13 MG/DL (7-18); HDL CHOLESTEROL 49.2 MG/DL (40.0-60.0); LDL CHOLESTEROL 118 MG/DL (0-99); TOTAL BILIRUBIN ADULT 0.3 MG/DL (0.2-1.0); TOTAL PROTEIN 7.3 GM/DL (6.4-8.2)
[2017-06-20 17:09] LABS: HEMOGLOBIN A1C 7.6 % (4.3-6.0)
== END ==
LOC: CLAB 06:36
PROVIDERS: ATTEND Internal Medicine Endocrinology, Diabetes & Metabolism
DX: E11.65 Type 2 diabetes mellitus with hyperglycemia (principal)
CPT/HCPCS: 36415; 80053; 80061; 82043; 83036; 83735; 85025